=== PATIENT | female | born 1965 | race Caucasian/White ===

== ENCOUNTER → 2016-11-15 | Outpatient (REF) | payer BC ==
[~2016-11-15] MED LIST: DILA2TAB2 PO; EFFE75CA75 PO; MOTRIN PO; NEUR300C PO; PHEN25IN3 OR; TYLE325T5 PO
== END ==
LOC: M LAB REF 16:55
PROVIDERS: ATTEND Advanced Practice Midwife
DX: Z12.4 Encounter for screening for malignant neoplasm of cervix (principal)

== ENCOUNTER → 2017-10-23 | Outpatient (REF) | payer OTHER | LOC: M LAB REF 12:05 | DX: J11.1 Influenza due to unidentified influenza virus with other respiratory manifestations (principal) ==

== ENCOUNTER → 2018-05-08 | Outpatient (REF) | payer OTHER ==
[2018-05-08 13:43] LABS: APPEARANCE, URINE CLOUDY (CLEAR); BACTERIA, URINE AUTO 1+ (NEGATIVE); BILIRUBIN, URINE AUTO NEGATIVE (NEGATIVE); BLOOD, URINE BLOOD NEGATIVE (NEGATIVE); COLOR, URINE YELLOW (YELLOW); GLUCOSE, URINE (UA) AUTO NEGATIVE (NEGATIVE); KETONE, URINE AUTO NEGATIVE (NEGATIVE); LEUKOCYTE ESTERASE, URINE AUTO 3+ (NEGATIVE); MUCUS, URINE SMALL (NEGATIVE); NITRITE, URINE AUTO NEGATIVE (NEGATIVE); PROTEIN, URINE AUTO NEGATIVE (NEGATIVE); RBC, URINE AUTO 8 /HPF (0-3); SPECIFIC GRAVITY URINE AUTO 1.024 (1.002-1.035); SQUAMOUS EPITHELIAL CELL UR AU 32 /HPF (0-6); WBC, URINE AUTO TNTC /HPF (0-3)
== END ==
LOC: M LAB REF 13:19
DX: N39.0 Urinary tract infection, site not specified (principal)

== ENCOUNTER → 2019-11-26 | Outpatient (REF) | payer OTHER ==
[~2019-11-26] MED LIST changes: -DILA2TAB2 PO; +DILA2TAB6 PO; +EFFE75CA2 PO; -EFFE75CA75 PO
== END ==
LOC: M LAB REF 10:44
PROVIDERS: ATTEND Dermatology
DX: D03.71 Melanoma in situ of right lower limb, including hip (principal)

== ENCOUNTER → 2019-12-24 | Outpatient (REF) | payer OTHER | LOC: M LAB REF 17:02 | PROVIDERS: ATTEND Dermatology | DX: D03.71 Melanoma in situ of right lower limb, including hip (principal) ==

== ENCOUNTER → 2020-10-21 | Outpatient (REF) | payer OTHER | LOC: M LAB REF 13:58 | PROVIDERS: ATTEND Dermatology | DX: L57.0 Actinic keratosis (principal) ==

== ENCOUNTER → 2021-01-25 | Outpatient (REF) | payer OTHER | LOC: M SFHCWAGY 16:55 | PROVIDERS: ATTEND Advanced Practice Midwife | DX: Z12.4 Encounter for screening for malignant neoplasm of cervix (principal) | CPT/HCPCS: 87624; G0123 ==

== ENCOUNTER → 2021-07-14 | Outpatient (REF) | payer OTHER, BC | LOC: M LAB REF 19:02 | PROVIDERS: ATTEND Dermatology | DX: D23.4 Other benign neoplasm of skin of scalp and neck (principal) ==

== ENCOUNTER → 2022-03-14 | Outpatient (REF) | payer BC, OTHER | LOC: M SFHCDERM 14:19 | PROVIDERS: ATTEND Physician Assistant | DX: L81.4 Other melanin hyperpigmentation (principal) ==

== ENCOUNTER → 2023-12-26 | Outpatient (CLI) | payer OTHER | LOC: M RAD 10:19 | PROVIDERS: ATTEND Internal Medicine | DX: B39.2 Pulmonary histoplasmosis capsulati, unspecified (principal) ==

== ENCOUNTER → 2025-05-15 | Outpatient (CLI) | payer BC ==
[2025-05-15 17:59] LABS: CHOLESTEROL LEVEL 204 MG/DL (<200); CHOLESTEROL RISK RATIO 2.65 (<5); LDL CHOLESTEROL 113.4 MG/DL (<100); NON-HDL-C 127.2 MG/DL; TRIGLYCERIDES LEVEL 69 MG/DL (<150)
[2025-05-15 18:01] LABS: PROGESTERONE < 0.21 NG/ML
[2025-05-15 18:02] LABS: TESTOSTERONE 8 NG/DL (14-76)
== END ==
LOC: M PLALAB 14:21
PROVIDERS: ATTEND Nurse Practitioner Adult Health
DX: N95.1 Menopausal and female climacteric states (principal); R53.82 Chronic fatigue, unspecified; M62.84 Sarcopenia; R68.82 Decreased libido

== ENCOUNTER → 2025-05-15 | Outpatient (CLI) | payer BC | LOC: M WHC 14:05 | PROVIDERS: ATTEND Advanced Practice Midwife | DX: Z13.820 Encounter for screening for osteoporosis (principal) ==

== ENCOUNTER → 2025-07-29 | Outpatient (REF) | payer BC | LOC: M SFHCWAGY 13:19 | PROVIDERS: ATTEND Advanced Practice Midwife | DX: Z53.9 Procedure and treatment not carried out, unspecified reason (principal) ==

== ENCOUNTER → 2025-09-11 | Outpatient (CLI) | payer BC ==
[2025-09-11 15:52] LABS: ALT/SGPT 19.0 U/L (7.0-40); AST/SGOT 17.0 U/L (<34); CALCIUM LEVEL 9.2 MG/DL (8.5-10.1); CARBON DIOXIDE LEVEL 29.0 MMOL/L (20-31); CHLORIDE LEVEL 106.0 MMOL/L (98-107); CREATININE FOR GFR 1.36 MG/DL (0.55-1.30); GLOMERULAR FILTRATION RATE 45.2 (>51); POTASSIUM SERUM 4.9 MMOL/L (3.5-5.1); SODIUM LEVEL 141.0 MMOL/L (136-145)
[2025-09-11 15:54] LABS: TESTOSTERONE 93.0 NG/DL (14-76)
== END ==
LOC: M PLALAB 12:31
PROVIDERS: ATTEND Advanced Practice Midwife
DX: N95.1 Menopausal and female climacteric states (principal); M81.0 Age-related osteoporosis without current pathological fracture

== ENCOUNTER → 2025-09-15 | Outpatient (REF) | payer BC | LOC: M SFHCDERM 17:53 | PROVIDERS: ATTEND Physician Assistant | DX: D49.2 Neoplasm of unspecified behavior of bone, soft tissue, and skin (principal) ==

== ENCOUNTER 2025-09-23 19:25 | Emergency (ER) | payer BC ==
[~2025-09-23] VITALS: Ht 180.3 cm; Wt 69.1 kg
[2025-09-23 19:27] VITALS: BP 128/61; TEMP 97; O2SAT 100
[2025-09-23 20:07] LABS: BASO # 0.0 10^3/uL (0.0-0.2); BASO % 0.3 % (0.0-1.0); EOS # 0.1 10^3/uL (0.0-0.5); EOS % 1.2 % (0.0-3.0); LYMPH # 2.9 10^3/uL (1.5-5.0); LYMPH % 29.3 % (24.0-44.0); MONO # 0.6 10^3/uL (0.0-0.8); MONO % 5.9 % (2.0-8.0); NEUTROPHILS # 6.2 10^3/uL (1.5-8.5); NEUTROPHILS % 63.1 % (36.0-66.0); PLATELET COUNT, AUTOMATED 224 10^3/uL (150-450)
[2025-09-23 20:29] LABS: INR 0.95
[2025-09-23] MEDS ORDERED: ISOVUE-370 76% 100 ML VIAL As Ordered ONE (20:35)
[2025-09-23 20:38] LABS: ALT/SGPT 21 U/L (7.0-40); AST/SGOT 34 U/L (<34)
[2025-09-23] MEDS ORDERED: PROT1TAB2 PO (21:38)
[2025-09-23] MEDS ORDERED: ESTR0.059 TD (21:48)
[2025-09-23] MEDS ORDERED: PROG1CAP8 PO (21:48)
[2025-09-23] MEDS ORDERED: MOME0.1C3 TOP (21:48)
[2025-09-23] MEDS ORDERED: TEST75GE10 TOP (21:48)
[2025-09-23] MEDS ORDERED: VENL37.52 PO (21:48)
[2025-09-23] MEDS ORDERED: HOME MED LIST COMPLETE! XX SCH (21:50)
== END 2025-09-23 21:58 | disposition home or self-care (01) ==
LOC: M ED 19:25
DX: K92.2 Gastrointestinal hemorrhage, unspecified (principal); A09 Infectious gastroenteritis and colitis, unspecified; F41.9 Anxiety disorder, unspecified; F32.9 Major depressive disorder, single episode, unspecified; M16.0 Bilateral primary osteoarthritis of hip; K76.89 Other specified diseases of liver; C34.92 Malignant neoplasm of unspecified part of left bronchus or lung; Z88.0 Allergy status to penicillin; Z88.2 Allergy status to sulfonamides; Z79.899 Other long term (current) drug therapy
CPT/HCPCS: 36415; 74177; 80047; 80076; 83690; 85025; 85610; 85730; 86850; 86900; 86901; 99284; Q9967